=== PATIENT | male | born 1960 | race Caucasian/White ===

== ENCOUNTER 2023-06-25 22:28 | Emergency (ER) | payer BC, SELFPAY ==
[2023-06-25 22:32] VITALS: BP 129/87; PULSE 74; RESP 18; TEMP 36.8; O2SAT 96; BMI 31.9
--- NOTE | 2023-06-25 22:49 | ECG_ITS ---
Test Reason : chest pain Blood Pressure : / mmHG Vent. Rate : 065 BPM Atrial Rate : 065 BPM P-R Int : 160 ms QRS Dur : 082 ms QT Int : 398 ms P-R-T Axes : 014 007 010 degrees QTc Int : 413 ms Normal sinus rhythm Normal ECG No previous ECGs available Referred By: Generic ED Physician Electronically Signed By:PANTERA BLACK MD
[2023-06-25 23:18] LABS: COVID-19 Test Positive (Negative); IDNOW Serial# 08D9AD1C
[2023-06-25 23:19] LABS: IDNOW Serial# 6674DD1D; Influenza A Negative (Negative); Influenza B2 Negative (Negative)
[2023-06-25 23:44] LABS: Basophils Percent Auto 0.1 % (0-2); Eosinophils Percent Auto 0.1 % (0-4); Hematocrit 47.1 % (42.0-52.0); Hemoglobin 16.7 g/dl (14.0-18.0); Imm Gran Abs Auto 0.04 X10*3/uL (0.00-0.03); Imm Gran Pct Auto 0.5 % (0.0-0.4); Lymphocytes Absolute Auto 0.5 X10*3/uL (1.2-4.9); Lymphocytes Percent Auto 6.5 % (20-40); MANUAL DIFF FLAG NO; Mean Corpuscular HGB Conc 35.5 g/dl (31.0-36.0); Mean Corpuscular Hemoglobin 31.4 pg (27.0-33.0); Mean Corpuscular Volume 88.5 fL (80.0-98.0); Mean Platelet Volume 9.7 fL (9.4-12.4); Monocytes Absolute Auto 0.9 X10*3/uL (0.1-1.2); Monocytes Percent Auto 10.8 % (2-11); Neutrophils Absolute Auto 6.4 x10*3/uL (2.0-8.3); Platelet Count 163 X10*3/uL (160-400); Red Blood Count 5.32 X10*6/uL (4.60-5.80); Red Cell Distribution Width 13.1 % (11.0-16.0); White Blood Count 7.9 X10*3/uL (4.8-10.8)
--- NOTE | 2023-06-25 23:44 | ED.GENADULT ---
HPI - General Adult General Chief complaint: Upper Respiratory Symptoms Stated complaint: high bp, not feeling good Time Seen by Provider: 06/25/23 23:41 Source: patient Mode of arrival: ambulatory Limitations: no limitations History of Present Illness HPI narrative: Patient been feeling weak exhausted nasal congestion dry cough for last 3 days been vaccinated against COVID last year no chest pain no shortness of breath no nausea vomiting or diarrhea saturating 96% at room air Related Data Previous Rx's Medication Instructions Recorded benzonatate 200 mg capsule 200 mg PO TID PRN cough #30 caps 06/26/23 nirmatrelvir 300 mg (150 mg See Rx Instructions PO .COMPLEX 06/26/23 x2)-ritonavir 100 mg tablet,dose #30 ea pack (Paxlovid) Allergies Allergy/AdvReac Type Severity Reaction Status Date / Time No Known Allergies Allergy Verified 06/25/23 22:32 Review of Systems Review of Systems: Yes all other systems are reviewed and are negative [facility] Social History Social History Advance Directives: No Advance Directives Information Provided: Yes Physical Exam ED Vital Signs: Vital Signs - 24 hr 06/25/23 22:32 Temperature 98.2 F Pulse Rate 74 Respiratory Rate 18 Blood Pressure 129/87 Pulse Oximetry 96 Oxygen Delivery Method Room Air BMI result Body Mass Index 31.9 Appearance: Alert. Oriented X3. No acute distress. Eyes: No pallor or icterus ENT: Pharynx normal. Oral Mucosa moist Neck: Normal inspection. Neck supple. CVS: Normal heart rate and rhythm. Pulses normal. Respiratory: No respiratory distress. Equal air entry bilateral, no wheezing/rales/rhonchi Abdomen: Soft and nontender. Bowel sounds are present, Skin: Skin warm and dry. Normal skin color. Normal skin turgor. Extremities: No lower extremity edema. No calf tenderness Neuro: Oriented X 3. Medications Administered Discontinued Medications Generic Name Dose Route Start Last Admin Trade Name Freq PRN Reason Stop Dose Admin Guaifenesin/Codeine Phosphate 10 ml 06/25/23 23:57 06/26/23 00:13 Guaifen/Codeine Sf 200/20/10ml 10 Ml Liquid PO 06/25/23 23:58 10 ml ONCE ONE Administration Sodium Chloride 1,000 mls @ 999 mls/hr 06/25/23 23:57 06/26/23 00:18 Ns IV 06/26/23 00:57 999 mls/hr .Q1H1M ONE Administration Ketorolac Tromethamine 30 mg 06/25/23 23:57 06/26/23 00:13 Ketorolac Tromethamine 30 Mg/Ml Vial IVPUSH 06/25/23 23:58 30 mg ONCE ONE Administration Medical Decision Making Medical Decision Making [facility] Narrative: Patient will COVID-19 saturating 96% room lungs are clear discharge patient home and on Paxlovid Differential Diagnosis Differential Diagnoses: The differential diagnosis associated with the presentation includes Viral infection/COVID Admission/Observation Consideration of admission/observation: Escalation of care including admission/observation considered Lab Data [facility] Lab Attestation statement: I reviewed the patient's lab results. 06/25/23 23:39 06/25/23 23:39 Labs: Lab Results 06/25/23 06/25/23 Range/Units 22:38 23:39 WBC 7.9 (4.8-10.8) X10*3/uL RBC 5.32 (4.60-5.80) X10*6/uL Hgb 16.7 (14.0-18.0) g/dl Hct 47.1 (42.0-52.0) % MCV 88.5 (80.0-98.0) fL MCH 31.4 (27.0-33.0) pg MCHC 35.5 (31.0-36.0) g/dl RDW 13.1 (11.0-16.0) % Plt Count 163 (160-400) X10*3/uL MPV 9.7 (9.4-12.4) fL Immature Gran % (Auto) 0.5 H (0.0-0.4) % Neut % (Auto) 82.0 H (45-73) % Lymph % (Auto) 6.5 L (20-40) % [place] % (Auto) 10.8 (2-11) % Eos % (Auto) 0.1 (0-4) % Baso % (Auto) 0.1 (0-2) % Lymph # (Auto) 0.5 L (1.2-4.9) X10*3/uL [place] # (Auto) 0.9 (0.1-1.2) X10*3/uL Eos # (Auto) 0.0 (0.0-0.4) X10*3/uL Baso # (Auto) 0.0 (0.0-0.2) X10*3/uL Abs Immat Gran (auto) 0.04 H (0.00-0.03) X10*3/uL Absolute Neuts (auto) 6.4 (2.0-8.3) x10*3/uL Absolute Nucleated RBC 0.000 (0.0-0.012) X10*3/uL Nucleated RBC % (auto) 0.0 (0.0-0.2) /100WBC Sodium 140 (135-145) mmol/L Potassium 3.7 (3.3-5.1) mmol/L Chloride 107 (96-108) mmol/L Carbon Dioxide 24 (22-29) mmol/L Anion Gap 13 (12-20) BUN 9 (9-16) mg/dL Creatinine 0.85 (0.5-1.4) mg/dL Estim Creat Clear Calc 111.8 Estimated GFR > 60 Random Glucose 129 H (60-115) mg/dL Calcium 9.1 (8.4-10.2) mg/dL Troponin I High Sens < 2.7 (<3.5-35.0) ng/L COVID-19 (JIMMY) Positive A (Negative) COVID-19 Clin Com See Note Influenza Type A (ALVIN) Negative (Negative) Influenza Type B (ALVIN) Negative (Negative) Influenza A & B Note See Note Independent Interpretation I performed an independent interpretation of an: EKG Interpretation: Now since 165 beats per minute normal intervals normal axis no acute STT wave changes no acute ischemia Discharge Plan Discharge Clinical Impression: COVID-19 Patient Disposition: Home, Self-Care Instructions: COVID-19 (Coronavirus Disease 2019) (ED) Additional Instructions: Drink plenty of fluids Medication as prescribed Cough drops as prescribed Report to the ER if increased shortness of breath Prescriptions: New Paxlovid 300 mg (150 mg x 2)-100 mg tablets,dose pack See Rx Instructions .ROUTE .COMPLEX Qty: 30 0RF Rx Instructions: take TWO 150 mg tablets of nirmatrelvir with ONE 100 mg tablet of ritonavir twice daily for 5 days benzonatate 200 mg capsule 200 mg PO TID PRN (Reason: cough) Qty: 30 0RF
[2023-06-25 23:59] LABS: Anion Gap 13 (12-20); Blood Urea Nitrogen 9 mg/dL (9-16); Calcium 9.1 mg/dL (8.4-10.2); Carbon Dioxide 24 mmol/L (22-29); Chloride 107 mmol/L (96-108); Creatinine Clr Calc Pharmacy 111.8; Estimated Glomerular Filt Rate > 60; Glucose Random 129 mg/dL (60-115); Potassium 3.7 mmol/L (3.3-5.1); Sodium 140 mmol/L (135-145)
[2023-06-26 00:09] LABS: Troponin-I High Sensitivity < 2.7 ng/L (<3.5-35.0)
[2023-06-26] MEDS: Ketorolac Tromethamine 30 MG/ML VIAL IVPUSH (00:13)
[2023-06-26] MEDS: guaiFEN/Codeine SF 200/20/10ML 10 ML LIQUID PO (00:13)
[2023-06-26] MEDS: 0.9 % Sodium Chloride 1,000 ML 999 ML IV (00:18)
[2023-06-26 02:30] VITALS: PULSE 78; O2SAT 96
== END 2023-06-26 01:30 | disposition home or self-care (01) ==
PROVIDERS: Emergency Provider Internal Medicine
DX: U07.1 COVID-19 (principal)
CPT/HCPCS: 36415; 80048; 84484; 85025; 87502; 87635; 93005; 96361; 96374; 99284; 99285; J1885